=== PATIENT | male | born 1940 | race Caucasian/White ===

== ENCOUNTER 2017-01-31 18:56 | Emergency (ER) | payer OTHER ==
--- NOTE | ~2017-01-31 | EKG ---
PATIENT: KAUSHIK RUIZ UNIT #: [id number] Ventricular Rate: 62 BPM Atrial Rate: 62 BPM P-R Interval: 270 ms QRS Duration: 98 ms Q-T Interval: 474 ms QTC Calculation(Bezet): 481 ms Calculated R Cylinder: 41 degrees Calculated T Cylinder: 31 degrees Diagnosis Line: Sinus rhythm with 1st degree A-V block Diagnosis Line: Prolonged QT Diagnosis Line: Moderate voltage criteria for LVH, may be normal Diagnosis Line: variant Diagnosis Line: Abnormal ECG Diagnosis Line: Diagnosis Line: Confirmed by MERY KING MD ([id number]) on 02/01/2017 Diagnosis Line: 6:25:12 PM INTERPRETING MD: CHRISTINE ADEN
--- NOTE | ~2017-01-31 | CT72 ---
[facility] A Service of [facility] RADIOLOGY TEXT RESULTS PATIENT: KAUSHIK RUIZ LOCATION: [facility] : 42 UNIT #: [id number] AGE: [address]: Jassi Rascon DO SEX: M ORDER DR: [id number] [address] [address] [id number] E MR#: [id number] Acc #: [id number] NAME: KAUSHIK RUIZ : 1940 SEX: M STUDY DATE/TIME: 01/31/2017 19:23 UNIT: [facility] ROOM: STUDY DESCRIPTION: CT Head Wo Contrast Stroke Attending Physician: Jassi Rascon D.O. Ordering Physician: Jassi Rascon D.O. MEDICAL IMAGING REPORT This report is preliminary unless electronic signature is present EXAM CT Head INDICATIONS Focal neurological deficit. Unresponsive. Intracranial hemorrhage. TECHNIQUE CT head without contrast. The CT exam was performed with one or more of the following radiation dose reduction techniques: automatic exposure control, adjustment of mA and/or kV according to patient size, and iterative reconstruction. COMPARISON CT head dated 12/26/2007. FINDINGS There is a large intraparenchymal hematoma centered about the right basal ganglia and medial right temporal lobe. This measures 6.9 x 4.8 cm. There is a moderate mass effect and associated edema. There is approximately 1.2 cm of right to left midline shift. Hemorrhage extends into the right lateral ventricle, left lateral ventricle, third ventricle, and the fourth ventricle. There is partial effacement of the suprasellar cistern. No uncal herniation is currently identified. No extraaxial collections. No acute osseous abnormalities. Patient does have a nasogastric intubation. [facility] A Service of [facility] [place] [place] RADIOLOGY TEXT RESULTS PATIENT: KAUSHIK RUIZ LOCATION: [facility] : 42 UNIT #: [id number] AGE: [address]: Jassi Rascon DO SEX: M ORDER DR: IMPRESSION 1. Large intraparenchymal hematoma centered about the right basal ganglia/right medial temporal lobe. This measures up to 6.9 cm. There is extensive localized mass effect and edema. 2. Interarticular extension of the hemorrhage into the ventricles. 3. 1.2 cm of right to left midline shift and effacement of the suprasellar cistern. Critical results were called to Dr. Rascon at 19:30 on 01/31/2017. Dictated by... Elton Soliz M.D. THIS IS AN ELECTRONICALLY VERIFIED REPORT Elton Soliz M.D. at 02/02/2017 10:32 AM Cory/valerie TD: 02/01/2017 09:24 JOB #: [id number] MEDICAL IMAGING REPORT Page 1 of 1 COPY
--- NOTE | ~2017-01-31 | CR72 ---
[facility] A Service of [facility] & [facility] RADIOLOGY TEXT RESULTS PATIENT: KAUSHIK RUIZ LOCATION: [facility] : 42 UNIT #: [id number] AGE: [address]: Jassi Rascon DO SEX: M ORDER DR: [id number] [facility] [address] [place], [place] [address] [id number] E MR#: [id number] Acc #: [id number] NAME: KAUSHIK RUIZ : 1940 SEX: M STUDY DATE/TIME: 01/31/2017 19:37 UNIT: [facility] ROOM: STUDY DESCRIPTION: CR Chest Single View Portable Attending Physician: Jassi Rascon D.O. Ordering Physician: Jassi Rascon D.O. MEDICAL IMAGING REPORT This report is preliminary unless electronic signature is present EXAM Single view chest INDICATION Cough for 1 day. Respiratory failure. FINDINGS Single portable AP of the chest compared to 04/07/2011. There is a endotracheal tube approximately 5 1/2 cm above the nan. Heart and mediastinal contours are unchanged. The heart is enlarged. There is background COPD. No focal consolidation. No pneumothorax or pleural effusion. IMPRESSION 1. The endotracheal tube is approximate 5 1/2 cm above the nan. 2. Cardiomegaly and COPD. Dictated by... Elton Soliz M.D. THIS IS AN ELECTRONICALLY VERIFIED REPORT Elton Soliz M.D. at 02/02/2017 10:32 AM RPC/yeny TD: 02/01/2017 07:53 JOB #: [id number] MEDICAL IMAGING REPORT Page 1 of 1 COPY
[~2017-01-31 18:56] MED LIST: ASPIRIN; LISINOPRIL; TOPROL XL; ZOCOR
[2017-01-31 19:27] LABS: BASOPHIL# 0.1 X10e3 (0-0.3); BASOPHIL% 0.7 % (0-2.5); EOSINOPHIL# 0.3 X10e3 (0-0.7); EOSINOPHIL% 2.9 % (0.0-7.0); HEMATOCRIT 49.6 % (38.0-50.0); HEMOGLOBIN 16.3 gm/dL (13.0-16.0); LYMPHOCYTE% 31.2 % (17.0-45.0); MEAN CELL VOLUME 87.3 FL (83-96); MEAN CORPUSCULAR HEMOGLOBIN 28.7 PG (28-34); MEAN CORPUSCULAR HGB CONC 32.8 g/dL (30-36); MEAN PLATELET VOLUME 8.9 FL (6.5-11.5); MONOCYTE# 0.7 X10e3 (0-1.0); MONOCYTE% 6.8 % (3.0-12.0); NEUTROPHIL# 5.6 X10e3 (1.5-7.1); NEUTROPHIL% 58.4 % (40-75); PLATELET COUNT 219 X10e3 (140-420); RED BLOOD COUNT 5.68 X10e (3.90-5.60); RED CELL DISTRIBUTION WIDTH 17.3 % (11.0-15.5); WHITE BLOOD COUNT 9.6 X10e3 (4.0-10.5)
[2017-01-31 19:31] LABS: DIFF IND NO
[2017-01-31 19:43] LABS: PROTHROMBIN TIME (PATIENT) 11.2 SECONDS (10.0-11.7)
[2017-01-31 19:47] LABS: URINE SOURCE CLEAN CATCH
[2017-01-31 19:48] LABS: ALKALINE PHOSPHATASE 96 U/L (32-92); ALT (SGPT) 10 U/L (10-40); AST (SGOT) 20 U/L (10-42); BILIRUBIN, DIRECT 0.2 mg/dL (0.0-0.2); BILIRUBIN,INDIRECT 0.2 mg/dL (0.0-0.9); BILIRUBIN,TOTAL 0.4 mg/dL (0.2-2.0); BLOOD UREA NITROGEN 18 mg/dL (9-23); BUN/CREATININE RATIO 12.85; CALCIUM SERUM 8.9 mg/dL (8.4-10.2); CARBON DIOXIDE 28 mmol/L (22-31); CHLORIDE 101 mmol/L (100-111); CREATININE SERUM 1.4 mg/dL (0.6-1.4); GLOM FILT RATE Estimated 48.5 mL/min (>60); GLUCOSE FASTING 174 mg/dL (70-110); PROTEIN TOTAL SERUM 8.5 g/dL (6.0-8.3); SALICYLATE <4.0 mg/dL; SODIUM 140 mmol/L (135-145)
[2017-01-31 19:49] LABS: ACETAMINOPHEN <10 ug/mL; ALCOHOL BLOOD <5 mg/dL ([, 0])
[2017-01-31 19:52] LABS: URINE APPEARANCE CLEAR; URINE BILIRUBIN NEG (NEG); URINE BLOOD 1+ (NEG); URINE COLOR YELLOW; URINE GLUCOSE NEG (NEG); URINE KETONE NEG (NEG); URINE LEUKOCYTE ESTERASE NEG (NEG); URINE NITRATE NEG (NEG); URINE PH 7.5 (5-8); URINE PROTEIN 3+ (NEG); URINE SPECIFIC GRAVITY 1.012 (1.003-1.035)
[2017-01-31 19:55] LABS: U HYALINE CASTS AUWI 0-2 /[LPF]; URINE BACTERIA AUWI NEG (NEGATIVE); URINE SQUAMOUS EPITHELIAL CELL OCC /[HPF]
[2017-01-31 19:56] LABS: ARTERIAL BLD GAS O2 SATURATION 97.8 % (90.0-100.0); ARTERIAL BLOOD GAS HCO3 29.7 mmol/L; ARTERIAL BLOOD GAS MET HB 0.5 %sat (0.0-2.0); ARTERIAL BLOOD GAS PCO2 49.5 mmHg (35.0-45.0); ARTERIAL BLOOD GAS pH 7.387 (7.350-7.450)
[2017-01-31 20:01] LABS: CULTURE INDICATED? NO
[2017-01-31 20:03] LABS: ARTERIAL BLOOD GAS ALLEN TEST NORMAL; ARTERIAL BLOOD GAS ART SITE RIGHT RADIAL; ARTERIAL BLOOD GAS DELIVERY VENT; ARTERIAL BLOOD GAS VENT MODE AC; ARTERIAL DRAW? YES
[2017-01-31 20:04] LABS: AMPHETAMINE NEG (NEG); BARBITURATES NEG (NEG); BENZODIAZEPINES NEG (NEG); COCAINE NEG (NEG); MARIJUANA NEG (NEG); OPIATES NEG (NEG); TRICYCLIC ANTIDEPRESSANTS NEG (NEG); U METHADONE NEG (NEG)
== END 2017-01-31 20:35 | disposition hospice, home (50) ==
LOC: CED 18:56
PROVIDERS: Emergency Medicine
DX: I61.9 Nontraumatic intracerebral hemorrhage, unspecified (principal); E78.5 Hyperlipidemia, unspecified; I10 Essential (primary) hypertension; Z79.82 Long term (current) use of aspirin; Z79.899 Other long term (current) drug therapy; Z95.1 Presence of aortocoronary bypass graft
CPT/HCPCS: 36600; 51702; 70450; 71010; 80048; 80076; 80307; 81003; 82140; 82803; 82947; 85025; 85610; 85730; 93005; 94002; 96365; 96375; 99291; G0480; J2405